=== PATIENT | male | born 1985 | race Caucasian/White ===

== ENCOUNTER 2022-01-04 07:00 | Emergency (ER) | payer BC ==
[2022-01-04] MEDS ORDERED: Sodium Chloride 0.9% 1,000 ML ONE (07:11)
[2022-01-04] MEDS ORDERED: Ondansetron 4 MG/2 ML SDV ONE (07:24)
[2022-01-04] MEDS ORDERED: fentaNYL 50 MCG/ML SDV IVPUSH ONE (07:30)
[2022-01-04] MEDS ORDERED: Ondansetron 4 MG/2 ML SDV IVPUSH STA ×2 (07:31→07:47)
[2022-01-04 07:38] LABS: CHLORIDE,CL 107 mEq/L (98-106); SODIUM,NA 143 mEq/L (136-145)
[2022-01-04] MEDS ORDERED: Sodium Chloride 0.9% 1,000 ML IV SCH (07:45)
[2022-01-04] MEDS ORDERED: Iopamidol 755 Mg/ML 100 ML Bottle IVPUSH ONE (07:48)
[2022-01-04] MEDS: HYDROmorphone 1 MG/ML Syringe IVPUSH PRN ×2 (07:53→08:19)
[2022-01-04] MEDS ORDERED: HYDROmorphone 1 MG/ML Syringe IVPUSH ONE (08:31)
[2022-01-04 09:49] VITALS: BP 122/78; PULSE 68
[2022-01-04] MEDS ORDERED: Ketorolac 30 MG/ML SDV IVPUSH ONE (10:13)
== END 2022-01-04 10:40 | disposition home or self-care (01) ==
LOC: CC.ED 07:00
DX: N20.0 Calculus of kidney (principal); K21.9 Gastro-esophageal reflux disease without esophagitis; D50.9 Iron deficiency anemia, unspecified
CPT/HCPCS: 36415; 74178; 80053; 81001; 85025; 86140; 96374; 96375; 96376; 99284-25; J1170; J1885; J2405; J3010; J7030; Q9967

== ENCOUNTER → 2022-02-02 | Day surgery (SDC) | payer BC ==
[~2022-02-02] MED LIST: Ketamine 200 MG/20 ML MDV ONE; Lactated Ringers 1,000 ML IV SCH; Lidocaine 2% 5 ML SDV ONE; Propofol 200 MG/20 ML SDV ONE; fentaNYL 100 MCG/2 ML SDV ONE
== END ==
LOC: CC.SDS 09:41
PROVIDERS: ATTEND Family Medicine
DX: K22.10 Ulcer of esophagus without bleeding (principal); D50.9 Iron deficiency anemia, unspecified; K21.9 Gastro-esophageal reflux disease without esophagitis; Z79.899 Other long term (current) drug therapy
CPT/HCPCS: 00731; 87081; J2704; J3010; J7120

== ENCOUNTER → 2022-10-12 | Day surgery (SDC) | payer BC ==
[~2022-10-12] MED LIST changes: -Ketamine 200 MG/20 ML MDV ONE; +Lidocaine 1% 5 ML VIAL ONE; -Lidocaine 2% 5 ML SDV ONE; +Phenylephrine 1% 10 MG/ML SDV ONE; -fentaNYL 100 MCG/2 ML SDV ONE; +fentaNYL 50 MCG/ML SDV ONE
== END ==
LOC: CC.SDS 08:42
PROVIDERS: ATTEND Family Medicine
DX: D12.5 Benign neoplasm of sigmoid colon (principal); D50.9 Iron deficiency anemia, unspecified; K57.30 Diverticulosis of large intestine without perforation or abscess without bleeding; K21.00 Gastro-esophageal reflux disease with esophagitis, without bleeding; K44.9 Diaphragmatic hernia without obstruction or gangrene; K64.8 Other hemorrhoids; Z79.899 Other long term (current) drug therapy; Z98.890 Other specified postprocedural states
CPT/HCPCS: 87081; J2370; J2704; J3010; J7120

== ENCOUNTER 2022-11-22 10:59 | Day surgery (SDC) | payer BC ==
[2022-11-22] MEDS: Lactated Ringers 1,000 ML IV SCH (11:34)
[2022-11-22] MEDS ORDERED: fentaNYL 50 MCG/ML SDV ONE (11:50)
[2022-11-22] MEDS ORDERED: Glycopyrrolate 0.2 MG/ML SDV ONE (11:50)
[2022-11-22] MEDS ORDERED: Midazolam 1 MG/ML 2 ML SDV ONE (11:50)
[2022-11-22] MEDS ORDERED: Neostigmine Methylsulfate 10 MG/10 ML MDV ONE (11:50)
[2022-11-22] MEDS ORDERED: Ondansetron 4 MG/2 ML SDV ONE (11:50)
[2022-11-22] MEDS ORDERED: Succinylcholine 200 MG/10 ML MDV ONE (11:50)
[2022-11-22] MEDS ORDERED: Morphine 4 MG/ML VIAL ONE (11:50)
[2022-11-22] MEDS ORDERED: Lidocaine 2% 20 ML MDV ONE (11:50)
[2022-11-22] MEDS ORDERED: Rocuronium 50 MG/5 ML Vial ONE (11:50)
[2022-11-22] MEDS ORDERED: Ketorolac 30 MG/ML SDV ONE (11:50)
[2022-11-22] MEDS ORDERED: Propofol 200 MG/20 ML SDV ONE (11:50)
[2022-11-22] MEDS ORDERED: Ketamine 200 MG/20 ML MDV ONE (11:50)
[2022-11-22] MEDS ORDERED: Dexamethasone 4 MG/ML SDV ONE (11:50)
[2022-11-22] MEDS: Lidocaine 1% with EPINEPHrine 1:100,000 20 ML MDV SUBCUT ONE (12:50)
[2022-11-22] MEDS: Ondansetron 4 MG/2 ML SDV IVPUSH ONE (15:36)
== END 2022-11-22 17:05 | disposition home or self-care (01) ==
LOC: CC.SDS 10:59
PROVIDERS: ATTEND Surgery
DX: K64.4 Residual hemorrhoidal skin tags (principal); K64.8 Other hemorrhoids; J02.9 Acute pharyngitis, unspecified; K21.9 Gastro-esophageal reflux disease without esophagitis; Z79.899 Other long term (current) drug therapy
CPT/HCPCS: 36415; 85014; 85018; J0330; J1100; J1885; J2250; J2270; J2405; J2704; J2710; J3010; J3490; J7120